=== PATIENT | male | born 1955 ===

== ENCOUNTER 2017-11-24 08:19 | Outpatient (CLI) | payer OTHER ==
[~2017-11-24] VITALS: Ht 177.8 cm; Wt 115.2 kg
== END 2017-11-24 08:40 | disposition home or self-care (01) ==
LOC: OFIC 805 08:19
DX: J31.0 Chronic rhinitis (principal); J37.0 Chronic laryngitis; R49.8 Other voice and resonance disorders; K21.9 Gastro-esophageal reflux disease without esophagitis